=== PATIENT | female | born 1980 | race Two or more races ===

== ENCOUNTER 2021-08-01 12:25 | Emergency (ER) | payer MEDICAID, OTHER ==
[~2021-08-01] VITALS: Ht 160 cm; Wt 90.7 kg
[2021-08-01] MEDS ORDERED: KETOROLAC TROMETH 60MG/2ML VIAL IM ONE (12:45)
[2021-08-01] MEDS ORDERED: METH750T22 PO (14:08)
[2021-08-01] MEDS ORDERED: IBUP800T27 PO (14:08)
[2021-08-01 14:15] VITALS: BP 127/90
== END 2021-08-01 14:16 | disposition home or self-care (01) ==
LOC: ER 12:25
DX: S16.1XXA Strain of muscle, fascia and tendon at neck level, initial encounter (principal); S39.012A Strain of muscle, fascia and tendon of lower back, initial encounter; M62.830 Muscle spasm of back; V43.52XA Car driver injured in collision with other type car in traffic accident, initial encounter; Y93.89 Activity, other specified; Y92.89 Other specified places as the place of occurrence of the external cause; Y99.8 Other external cause status
CPT/HCPCS: 72040; 72100; 96372